=== PATIENT | male | born 1985 | race Two or more races ===

== ENCOUNTER → 2017-02-16 | Outpatient (REF) | payer OTHER ==
[2017-02-16 15:20] LABS: % NORMAL FORMS 8 % (>=4); IMMOTILITY 55 %; NON PROGRESSIVE MOTILITY (c) 9 %; PROGRESSIVE MOTILITY (a) 36 % (>=32); SPERM# 124.4 M/Ejac (>=39); TOTAL FUNCTIONAL 8.4 M/Ejac.; TOTAL MOTILITY 45 % (>=40); TOTAL PROGRESSIVE SPERM 44.7 M/Ejac.
== END ==
LOC: M LAB REF 15:16
PROVIDERS: ATTEND Obstetrics & Gynecology Gynecology
DX: Z31.41 Encounter for fertility testing (principal)

== ENCOUNTER → 2017-02-23 | Outpatient (REF) | payer OTHER ==
[2017-02-23 13:47] LABS: % NORMAL FORMS 8 % (>=4); IMMOTILITY 51 %; NON PROGRESSIVE MOTILITY (c) 14 %; PROGRESSIVE MOTILITY (a) 35 % (>=32); SPERM ABNORMAL FORMS WBC'S NOTED; SPERM# 75.1 M/Ejac (>=39); TOTAL MOTILITY 49 % (>=40); TOTAL PROGRESSIVE SPERM 26.7 M/Ejac.
== END ==
LOC: M LAB REF 13:42
PROVIDERS: ATTEND Obstetrics & Gynecology Gynecology
DX: Z31.41 Encounter for fertility testing (principal)

== ENCOUNTER 2017-06-12 04:32 | Emergency (ER) | payer OTHER ==
[2017-06-12] MEDS: KETOROLAC 30 MG/ML VIAL (J1885) IV (06:45)
[2017-06-12] MEDS: dexameTHASONE 20 MG/5 ML VIAL (J1100) IV (06:45)
== END 2017-06-12 06:58 | disposition home or self-care (01) ==
LOC: M ED 04:32
DX: R07.1 Chest pain on breathing (principal); J40 Bronchitis, not specified as acute or chronic; F17.200 Nicotine dependence, unspecified, uncomplicated
CPT/HCPCS: J1100

== ENCOUNTER → 2017-06-14 | Outpatient (CLI) | payer OTHER ==
[~2017-06-14] MED LIST: PROHANCE 279.3MG/ML 15ML VIAL (A9576) As Ordered
== END ==
LOC: M RAD 10:36
DX: R93.7 Abnormal findings on diagnostic imaging of other parts of musculoskeletal system (principal)
CPT/HCPCS: A9576

== ENCOUNTER 2018-10-03 20:44 | Emergency (ER) | payer OTHER ==
[~2018-10-03] VITALS: Ht 172.7 cm; Wt 65.9 kg
[~2018-10-03 20:44] MED LIST changes: +IBUP200C25 PO; +KETO10TAB PO; +PRED20TA PO; -PROHANCE 279.3MG/ML 15ML VIAL (A9576) As Ordered
[2018-10-04] MEDS ORDERED: LIDOCAINE 5% (LIDODERM) PATCH TD ONE (00:30)
[2018-10-04] MEDS ORDERED: diazePAM 10 MG TAB PO ONE (00:30)
[2018-10-04] MEDS ORDERED: KETOROLAC 60 MG/2 ML VIAL (J1885) IM ONE (00:30)
--- NOTE | 2018-10-04 01:10 | REPVR ---
EXAM: CT Lumbar Spine Without Contrast EXAM DATE/TIME: 10/04/2018 12:31 AM CLINICAL HISTORY: 33 years old, male; Low back pain; Additional Info: sudden onset pain while deadlifting, PT tender TECHNIQUE: Imaging protocol: Computed tomography images of the lumbar spine without contrast. Coronal and sagittal reformatted images were created and reviewed. Radiation optimization: All CT scans at this facility use at least one of these dose optimization techniques: automated exposure control; mA and/or kV adjustment per patient size (includes targeted exams where dose is matched to clinical indication); or iterative reconstruction. COMPARISON: No relevant prior studies available. FINDINGS: Vertebrae: No acute fracture. Normal alignment. L1-L2: Limited evaluation. No definite spinal stenosis. L2-L3: Limited evaluation. No definite spinal stenosis. L3-L4: Limited evaluation. No definite spinal stenosis. L4-L5: Limited evaluation. No definite spinal stenosis. L5-S1: Limited evaluation. No definite spinal stenosis. Soft tissues: Unremarkable. IMPRESSION: No acute fracture. Electronically signed by: Thanh Salinas On 10/04/2018 01:10:37 AM
[2018-10-04] MEDS ORDERED: ROBA500T PO (01:43)
[2018-10-04 02:09] VITALS: BP 106/59
[2018-10-04] MEDS ORDERED: **NOTE PATIENT COMMENT** MISC XX ONE (12:30)
== END 2018-10-04 02:20 | disposition home or self-care (01) ==
LOC: M ED 20:44
DX: S39.012A Strain of muscle, fascia and tendon of lower back, initial encounter (principal); M62.838 Other muscle spasm; X58.XXXA Exposure to other specified factors, initial encounter; Y92.89 Other specified places as the place of occurrence of the external cause; F17.210 Nicotine dependence, cigarettes, uncomplicated
CPT/HCPCS: 72131; 96372; 99283; J1885

== ENCOUNTER 2022-07-03 18:22 | Emergency (ER) | payer OTHER ==
[~2022-07-03] VITALS: Ht 172.7 cm; Wt 69.3 kg
[~2022-07-03 18:22] MED LIST changes: +ROBA500T PO
[2022-07-03] MEDS ORDERED: IBUPROFEN 600MG TAB PO ONE (22:10)
[2022-07-03] MEDS ORDERED: methocarbamoL 500 MG TAB PO ONE (22:10)
[2022-07-03] MEDS ORDERED: METH-1164 PO (23:56)
[2022-07-03] MEDS ORDERED: PRED20TA PO (23:56)
[2022-07-04 00:06] VITALS: BP 118/67
== END 2022-07-04 00:18 | disposition home or self-care (01) ==
LOC: M ED 18:22
DX: M54.2 Cervicalgia (principal)

== ENCOUNTER → 2022-09-16 | Outpatient (CLI) | payer OTHER ==
[~2022-09-16] MED LIST changes: +METH-1164 PO
== END ==
LOC: M RAD 08:13
PROVIDERS: ATTEND Physician Assistant
DX: S29.011A Strain of muscle and tendon of front wall of thorax, initial encounter (principal); X58.XXXA Exposure to other specified factors, initial encounter; Y92.89 Other specified places as the place of occurrence of the external cause; Y93.89 Activity, other specified; Y99.8 Other external cause status; R07.9 Chest pain, unspecified; M25.511 Pain in right shoulder